=== PATIENT | male | born 1960 | race Caucasian/White ===

== ENCOUNTER → 2022-09-06 12:47 | Outpatient (CLI) | payer OTHER, SELFPAY ==
--- NOTE | 2022-09-06 13:07 | DI.MRI.S_ITS ---
PROCEDURE: MR LUMBAR SPINE WO CON INDICATIONS: Other spondylosis with radiculopathy, lumbar regio TECHNIQUE: Noncontrast sagittal T1 spin echo and T2 fast echo, sagittal STIR, and T2 fast spin echo through the lumbar spine. In cases with scoliosis, additional coronal T2 fast spin echo may be performed. COMPARISON: None. FINDINGS: Image quality: Excellent. Alignment and Curvature: 6 mm degenerative anterolisthesis of L4 on L5. Bone Marrow: Marrow is of normal overall signal. No acute vertebral body compression fractures. Spinal Cord: Conus medullaris terminates at the L1-L2 level. Visualized cord demonstrates normal signal and size. Paraspinous Soft Tissues: No paravertebral masses. T12-L1: Disc bulge. No canal stenosis or foraminal stenosis. L1-L2: No canal stenosis or foraminal stenosis. L2-L3: Mild disc bulge. Facet hypertrophy. Borderline canal stenosis. Far right lateral disc protrusion or extrusion may impinge on the right L2 nerve root far laterally. Reference image 6/2 of the T2 sagittal sequence and image 15/5 of the T2 axial sequence. L3-L4: Disc bulge, eccentric to the right. Facet and ligament hypertrophy. Moderate canal stenosis. Mild bilateral foraminal stenosis. L4-L5: Disc bulge. Prominent facet hypertrophy. Anterolisthesis of L4 on L5. Severe canal stenosis involving the central canal and lateral recesses. Mild right foraminal narrowing. Moderate left foraminal narrowing with flattening deformity on the exiting left L4 nerve root. L5-S1: Facet hypertrophy. No canal stenosis or foraminal stenosis. IMPRESSION: 1. Multilevel facet arthropathy. 2. At L2-L3, there is a far right lateral disc protrusion or extrusion which can potentially result in right L2 radiculitis. Question: Does this patient have had a acute right L2 radicular symptoms? 3. There is moderate canal stenosis at L3-L4 and severe canal stenosis at L4-L5. 4. Multilevel foraminal narrowing as described above. Dictated by: Eliel King M.D. on 09/06/2022 at 14:18 Approved by: Eliel King M.D. on 09/06/2022 at 14:25
== END ==
PROVIDERS: PCP Internal Medicine; Referring Provider Internal Medicine; Visit Provider Internal Medicine
DX: M47.26 Other spondylosis with radiculopathy, lumbar region (principal); M51.16 Intervertebral disc disorders with radiculopathy, lumbar region; M48.061 Spinal stenosis, lumbar region without neurogenic claudication
CPT/HCPCS: 72148